=== PATIENT | male | born 1990 | race Two or more races ===

== ENCOUNTER 2017-05-22 02:33 | Emergency (ER) | payer MEDICAID ==
[~2017-05-22] VITALS: Ht 175.3 cm; Wt 89.4 kg
[2017-05-22] MEDS ORDERED: KETOROLAC TROMETH 30 MG/ML 1ML VIAL IV ONE (03:00)
[2017-05-22 04:00] VITALS: BP 128/62
[2017-05-22 04:08] LABS: Basophils # (auto) 0.1 uL; Eosinophils # (auto) 0.2 uL; Hematocrit 41.8 % (41.0-53.0); Hemoglobin 14.3 g/dL (13.5-17.5); Lymphocytes # (auto) 1.5 uL; Lymphocytes % (auto) 18.6 % (10.0-50.0); Mean Corpuscular Hemoglobin 28.3 pg (28.0-32.0); Mean Corpuscular Hgb Conc. 34.3 g/dL (32.0-36.0); Mean Corpuscular Volume 82.5 fL (80.0-100.0); Mean Platelet Volume 9.2 fL (6.9-10.8); Monocytes # (auto) 0.8 uL; Monocytes % (auto) 9.6 % (0.0-12.0); Neutrophils # (auto) 5.3 uL; Neutrophils % (auto) 67.8 % (37.0-80.0); Nucleated Red Blood Cells % 0.1 %; Platelet Count (auto) 178 10^3/uL (140-450); Red Cell Distribution Width 13.8 % (11.8-14.3); White Blood Cell 7.9 10^3/uL (4.4-10.8)
[2017-05-22 04:21] LABS: Albumin 3.7 g/dL (3.4-5.0); BUN/Creatinine Ratio 20.9; Calcium 8.5 mg/dL (8.5-10.1); Potassium 3.5 mmol/L (3.5-5.1)
[2017-05-22 04:23] LABS: Bilirubin, Total 0.6 mg/dL (0.2-1.0); Total Protein 7.3 g/dL (6.4-8.2)
[2017-05-22 05:11] LABS: Urine Bilirubin Negative (Negative); Urine Blood 3+ /uL (Negative); Urine Color Yellow (Yellow); Urine Glucose Normal (Normal); Urine Ketone TRACE (Negative); Urine Mucus MODERATE (None Seen); Urine Nitrite Negative (Negative); Urine RBC 75 /hpf (0 - 3); Urine Urobilinogen Normal (Negative); Urine pH 5.5 (5.0-8.0)
== END 2017-05-22 05:58 | disposition home or self-care (01) ==
LOC: ER 02:35
DX: N20.0 Calculus of kidney (principal)
CPT/HCPCS: 36415; 74176; 80053; 81001; 85025; 96374; 99285; J1885

== ENCOUNTER 2020-12-21 17:35 | Emergency (ER) | payer MEDICAID ==
[~2020-12-21] VITALS: Ht 175.3 cm; Wt 86.6 kg
[2020-12-21 17:36] VITALS: BP 141/71
== END 2020-12-21 19:40 | disposition home or self-care (01) ==
LOC: ER 17:35
DX: S56.912A Strain of unspecified muscles, fascia and tendons at forearm level, left arm, initial encounter (principal); X58.XXXA Exposure to other specified factors, initial encounter; Y93.89 Activity, other specified; Y92.89 Other specified places as the place of occurrence of the external cause; Y99.8 Other external cause status
CPT/HCPCS: 73090

== ENCOUNTER 2021-04-04 08:09 | Emergency (ER) | payer MEDICAID ==
[~2021-04-04] VITALS: Ht 175.3 cm; Wt 87.5 kg
[2021-04-04 09:30] VITALS: BP 121/75
== END 2021-04-04 09:37 | disposition home or self-care (01) ==
LOC: ER 08:09
DX: J06.9 Acute upper respiratory infection, unspecified (principal); H66.92 Otitis media, unspecified, left ear
CPT/HCPCS: 71045

== ENCOUNTER 2021-06-13 08:27 | Emergency (ER) | payer MEDICAID ==
[~2021-06-13] VITALS: Ht 175.3 cm; Wt 87.5 kg
[2021-06-13 08:29] VITALS: BP 136/65
== END 2021-06-13 10:47 | disposition home or self-care (01) ==
LOC: ER 08:27
DX: J06.9 Acute upper respiratory infection, unspecified (principal); Z20.822 Contact with and (suspected) exposure to COVID-19
CPT/HCPCS: 36415; 71046; 87426

== ENCOUNTER 2022-01-19 08:54 | Emergency (ER) | payer MEDICAID ==
[2022-01-19 09:00] VITALS: BP 130/70
[2022-01-19] MEDS ORDERED: AZIT500T66 PO (10:19)
[2022-01-19] MEDS ORDERED: PRED20TA2 PO (10:20)
== END 2022-01-19 10:09 | disposition home or self-care (01) ==
LOC: ER 08:54
DX: J03.90 Acute tonsillitis, unspecified (principal); J20.9 Acute bronchitis, unspecified; R07.89 Other chest pain; Z20.822 Contact with and (suspected) exposure to COVID-19
CPT/HCPCS: 36415; 71045

== ENCOUNTER 2023-11-06 21:14 | Emergency (ER) | payer MEDICAID ==
[~2023-11-06] VITALS: Ht 175.3 cm; Wt 93.1 kg
[~2023-11-06 21:14] MED LIST: AZIT500T66 PO; PRED20TA2 PO
[2023-11-07] MEDS ORDERED: BENZ200C64 PO (01:02)
[2023-11-07] MEDS ORDERED: PRED20TA2 PO (01:02)
[2023-11-07] MEDS ORDERED: ALBUAER3 IN (01:02)
[2023-11-07] MEDS ORDERED: CEPH500C PO (01:02)
[2023-11-07] MEDS: ALBUTEROL SULF 2.5 MG/0.5ML(0.5%) NEB SOLN NEB ONE (01:14)
[2023-11-07] MEDS: IPRATROPIUM BROM 0.5 MG/2.5ML INH SOL NEB ONE (01:14)
[2023-11-07] MEDS: DexAMETHasone SOD PHOS 10MG/1ML VIAL INJ IM ONE (02:25)
[2023-11-07] MEDS: IBUPROFEN 800 MG TAB PO ONE (02:26)
[2023-11-07] MEDS: guaiFENesin-CODEINE Liq 5 ML UD PO ONE (02:26)
[2023-11-07 02:50] VITALS: BP 114/61; PULSE 88; RESP 20; TEMP 98.8; O2SAT 96
== END 2023-11-07 03:00 | disposition home or self-care (01) ==
LOC: ER 21:14
DX: J20.9 Acute bronchitis, unspecified (principal)
CPT/HCPCS: 94640; 96372; 99283; J1100; J7644